=== PATIENT | male | born 1990 | race Caucasian/White ===

== ENCOUNTER 2017-10-22 19:46 | Emergency (ER) | payer OTHER ==
[~2017-10-22 19:46] MED LIST: ADVIL200 MG PO; ALEVE220 MG PO; AMOXIL500 MG PO; AUGMENTIN 875 M1 TAB PO; AUGMENTIN 875-1 EACH PO; BACTRIM DS 8001 TAB PO; CYCLOBENZAPRINE10 M3 PO; KEFLEX500 M1 PO; PERCOCET 325 MG1 TA2 PO; PERCOCET 5-3251 EACH PO
[2017-10-22 19:58] VITALS: BP 148/73
--- NOTE | 2017-10-22 20:08 | ED THROAT/DENTAL COMPLAINT ---
History of Present Illness General Chief Complaint: Sore Throat, Dental Pain Stated Complaint: PT IS HAVING TOOTH PAIN Source: patient, family Exam Limitations: no limitations Vital Signs & Intake/Output Vital Signs & Intake/Output Vital Signs Date Time Temp Pulse Resp B/P B/P Pulse O2 O2 Flow FiO2 Mean Ox Delivery Rate 10/22 1957 97.0 82 22 148/73 99 Allergies Coded Allergies: bee venom protein (honey bee) (Severe, ANAPHYLAXIS 08/05/17) codeine (Intermediate, HIVES 08/05/17) Reconcile Medications Amoxicillin/Potassium Clav (Augmentin 875-125 Tablet) 875 MG-125 MG TABLET 1 TAB PO BID TOOTH Amoxicillin/Potassium Clav (Augmentin 875-125 Tablet) 875 MG-125 MG TABLET 1 TAB PO BID DENTAL INFECTION Lidocaine HCl (Lidocaine HCl Viscous) 2 % SOLUTION 5 ML PO TID PAIN Oxycodone HCl/Acetaminophen (Percocet 5-325 MG Tablet) 5 MG-325 MG TABLET 1 TAB PO TID PAIN Oxycodone HCl/Acetaminophen (Percocet 5-325 MG Tablet) 5 MG-325 MG TABLET 1 TAB PO TID PRN PAIN Triage Note: PER PT BROKE A TOOTH 2 DAYS AGO TONIGHT PAIN TOO INTENSE AMBESOL NOT WORKING Triage Nurses Notes Reviewed? yes HPI: 27M no PMH with 2 days of left lower tooth pain after breaking his tooth biting into a chicken bone. Has a dental appointment for 4 days from now and has been using Anbesol for the pain which has been keeping it controlled until today. Today the pain has been unbearable and the patient is visibly uncomfortable and in pain. He denies fever, chills, n/v, spreading of pain, swelling, discharge, erythema, neck stiffness, headache, vision changes. Past History Travel History Traveled to [place] past 21 day No Medical History Any Pertinent Medical History? see below for history Neurological: NONE EENT: NONE Cardiovascular: NONE Respiratory: NONE Gastrointestinal: NONE Hepatic: hepatitis C Renal: NONE Musculoskeletal: NONE Psychiatric: ADHD Endocrine: NONE Blood Disorders: NONE Cancer(s): NONE CIRCUIT TESTER/Reproductive: NONE Surgical History Surgical History: non-contributory Psychosocial History What is your primary language Belarusian Tobacco Use: Current Daily Use Daily Tobacco Use Amount/Type: => 5 Cigarettes daily Family History Hx Contributory? No Review of Systems Review of Systems Constitutional: Reports: no symptoms. EENTM: Reports: no symptoms. Respiratory: Reports: no symptoms. Cardiovascular: Reports: no symptoms. GI: Reports: no symptoms. Genitourinary: Reports: no symptoms. Musculoskeletal: Reports: no symptoms. Skin: Reports: no symptoms. Neurological/Psychological: Reports: no symptoms. Hematologic/Endocrine: Reports: no symptoms. Immunologic/Allergic: Reports: no symptoms. All Other Systems: Reviewed and Negative Physical Exam Physical Exam General Appearance: well developed/nourished, moderate distress Head: atraumatic, normal appearance Eyes: Bilateral: normal appearance. Nose: normal inspection Mouth/Throat: left lower molar cracked with surrounding erythema Neck: normal inspection, supple, full range of motion Cardiovascular/Respiratory: normal breath sounds, regular rate/rhythm Back: normal inspection, normal range of motion Neurologic/Psych: awake, alert, oriented x 3, normal mood/affect Skin: intact, normal color, warm/dry Core Measures ACS in differential dx? No Sepsis Present: No Sepsis Focused Exam Completed? No Progress Differential Diagnosis: aspirated tooth, carious tooth, epiglottitis, Ludwigs angina, meningitis, odontogenic abscess, gil-tonsillar abscess, pharyngeal for. body, stomatitis/gingivitis, strep pharyngitis, tooth fracture Plan of Care: Will give local and IM pain medications and discharge with outpatient dental follow up. Improved after lidocaine injection. Departure Departure Disposition: HOME OR SELF CARE Condition: Stable Clinical Impression Primary Impression: Broken tooth Referrals: Patient Has No Primary Care Dr (PCP/Family) Additional Instructions: Follow up with your dentist or oral surgeon as soon as possible. If you note any new or worsening symptoms, including fever, chills, jaw pain, sinus pain, neck stiffness, confusion, changes in vision or hearing, return to emergency department. Departure Forms: Customer Survey General Discharge Information Prescriptions: Current Visit Scripts Oxycodone HCl/Acetaminophen (Percocet 5-325 MG Tablet) 1 TAB PO TID #15 TAB Lidocaine HCl (Lidocaine HCl Viscous) 5 ML PO TID #100 ML Amoxicillin/Potassium Clav (Augmentin 875-125 Tablet) 1 TAB PO BID #14 TAB
[2017-10-22] MEDS ORDERED: PERCOCET 5-3251 EACH PO (20:28)
[2017-10-22] MEDS ORDERED: LIDOCAINE HCL V15 ML PO (20:28)
[2017-10-22] MEDS ORDERED: AUGMENTIN 875-1 EACH PO (20:28)
== END 2017-10-22 20:53 ==
LOC: ERH 19:46
DX: S02.5XXA Fracture of tooth (traumatic), initial encounter for closed fracture (principal); X58.XXXA Exposure to other specified factors, initial encounter; Y93.89 Activity, other specified; Y92.9 Unspecified place or not applicable
CPT/HCPCS: 96372; J1885

== ENCOUNTER 2017-12-20 18:52 | Emergency (ER) | payer OTHER ==
[~2017-12-20] VITALS: Ht 170.2 cm; Wt 72.6 kg
[~2017-12-20 18:52] MED LIST changes: +LIDOCAINE HCL V15 ML PO
--- NOTE | 2017-12-20 19:56 | ED GENERAL ADULT ---
History of Present Illness General Chief Complaint: General Adult Stated Complaint: N/V OD EARLIER TODAY ON OXYCODONE 80MG Source: patient, family Exam Limitations: intoxication Vital Signs & Intake/Output Vital Signs & Intake/Output Vital Signs Date Time Temp Pulse Resp B/P B/P Pulse O2 O2 Flow FiO2 Mean Ox Delivery Rate 12/20 2224 98.0 68 18 135/72 98 Room Air Room Air 12/20 1917 98.0 65 18 137/74 97 Room Air Allergies Coded Allergies: bee venom protein (honey bee) (Severe, ANAPHYLAXIS 08/05/17) codeine (Intermediate, HIVES 08/05/17) Reconcile Medications Amoxicillin/Potassium Clav (Augmentin 875-125 Tablet) 875 MG-125 MG TABLET 1 TAB PO BID TOOTH Amoxicillin/Potassium Clav (Augmentin 875-125 Tablet) 875 MG-125 MG TABLET 1 TAB PO BID DENTAL INFECTION Lidocaine HCl (Lidocaine HCl Viscous) 2 % SOLUTION 5 ML PO TID PAIN Oxycodone HCl/Acetaminophen (Percocet 5-325 MG Tablet) 5 MG-325 MG TABLET 1 TAB PO TID PAIN Oxycodone HCl/Acetaminophen (Percocet 5-325 MG Tablet) 5 MG-325 MG TABLET 1 TAB PO TID PRN PAIN Triage Note: PT FROM HOME C/O OD ON OXYCODONE 80MG THIS MORNING AT WORK. PTS GIRLFRIEND CONCERNED. COWORKERS FOUND PT AT WORK ON THE GROUND, UNWITNESSED FALL, +HEADSTRIKE, UNSURE OF LOC. PTS GIRLFRIEND STATES HE WAS TAKEN TO [facility] AND THEN DISCHARGED. PTS HAS BEEN VOMITTING X4 WITH BLOOD, PT HAS SLURRED SPEECH, ANSWERS QUESTIONS APPROPRIATELY X3. PT IS AMBULATORY WITH UNSTEADY GAIT. PT IS LETHARGIC, DIAPHORESIS. PTS GF STATED NO CT SCANS OR XRAY WERE COMPLETED AND THAT PT USUALLY DOES NOT HAVE A DRUG "ISSUE" PT "HIS BACK HAS BEEN BOTHERING HIM THATS WHY HE TOOK THE MEDICATION" PT IS DROOLING SLUMPED OVER IN TRIAGE. 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 yes Onset: Gradual Duration: hour(s): Timing: single episode today Injury Environment: work Severity: moderate HPI: 27yo male presents to ED following accidental overdose on oxycodone 80mg this morning at work. HPI is obtained from patient's girlfriend due to his intoxication. Patient had been complaining of back pain for several weeks and believes he took this medication to help with his pain. She is unsure where he got the medication however she believes he got up from a coworker. states that the patient's coworkers found him on the ground, they believe he passed out after taking the medication. They believe that he has had however they are unsure if he lost consciousness. The patient was seen and evaluated at [facility] and was discharged without imaging. Girlfriend reports that he has had 4 episodes of vomiting and he is now having slurred speech with difficulty answering questions. Girlfriend is having difficulty arousing the patient. She states that he does not have a drug problem and this is new behavior for him. Girlfriend also reports history of recent cough and hemoptysis. Upon questioning the patient is denying pain, he denies suicidal ideation. (Triny Owusu) Past History Travel History Traveled to [place] past 21 day No Medical History Any Pertinent Medical History? see below for history Neurological: NONE EENT: NONE Cardiovascular: NONE Respiratory: NONE Gastrointestinal: NONE Hepatic: hepatitis C Renal: NONE Musculoskeletal: NONE Psychiatric: ADHD Endocrine: NONE Blood Disorders: NONE Cancer(s): NONE RN PRIOR AUTHORIZATION/Reproductive: NONE Surgical History Surgical History: non-contributory Psychosocial History What is your primary language Luxembourgish Tobacco Use: Current Daily Use Daily Tobacco Use Amount/Type: => 5 Cigarettes daily ETOH Use: occasional use Illicit Drug Use: marijuana Family History Hx Contributory? No (Triny Owusu) Review of Systems Review of Systems Constitutional: Reports: see HPI. EENTM: Reports: no symptoms. Respiratory: Reports: see HPI. Cardiovascular: Reports: no symptoms. GI: Reports: see HPI. Genitourinary: Reports: no symptoms. Musculoskeletal: Reports: see HPI. Skin: Reports: no symptoms. Neurological/Psychological: Reports: see HPI. Hematologic/Endocrine: Reports: no symptoms. Immunologic/Allergic: Reports: no symptoms. All Other Systems: Reviewed and Negative (Triny Owusu) Physical Exam Physical Exam General Appearance: well developed/nourished, no apparent distress, alert, awake Head: atraumatic, normal appearance Eyes: Bilateral: normal appearance, other (pinpoint pupils). Ears, Nose, Throat: hearing grossly normal Neck: normal inspection, supple, full range of motion, no midline tenderness Respiratory: normal breath sounds, no respiratory distress, lungs clear Cardiovascular: regular rate/rhythm Gastrointestinal: normal bowel sounds, soft, non-tender, no organomegaly Back: normal inspection, normal range of motion Extremities: normal inspection, normal range of motion Neurologic/Psych: sedated, arousable with verbal stimuli Skin: intact, normal color, diaphoresis Core Measures ACS in differential dx? No CVA/TIA Diagnosis: No Sepsis Present: No Sepsis Focused Exam Completed? No (Azeb LANDAVERDE,Triny Leija) Progress Differential Diagnoses I considered the following diagnoses in my evaluation of the patient: [drug overdose, polysubstance abuse, ICH, seizure, intracranial mass/lesion] Plan of Care: Orders Procedure Date/time Status Add-on Test (ER Only) 12/20 2099 Active TROPONIN LEVEL 12/21 2019 Complete EKG 12/20 1958 Active Add-on Test (ER Only) 12/21 1955 Active URINE DRUG SCREEN FOR ER ONLY 12/21 1911 Complete ACETOMINOPHEN 12/21 1911 Complete SALICYLATE 12/21 1911 Complete D-DIMER 12/21 1911 Complete COMPREHENSIVE METABOLIC PANEL 12/21 1911 Complete CBC WITHOUT DIFFERENTIAL 12/21 1911 Complete Laboratory Tests 12/20/172019: Urine Opiates Screen > 4000.00 H, Methadone Screen < 40, Barbiturate Screen < 60, Ur Phencyclidine Scrn < 6.00, Amphetamines Screen < 100, U Benzodiazepines Scrn < 85, Urine Cocaine Screen 904 H, Urine Cannabis Screen > 80.00 H 12/20/17 2020: Anion Gap 8, Estimated GFR > 60, BUN/Creatinine Ratio 11.8, Glucose 81, Calcium 9.6, Total Bilirubin 0.6, AST 43, ALT 76 H, Alkaline Phosphatase 65, Troponin I < 0.01, Total Protein 7.5, Albumin 4.7, Globulin 2.8, Albumin/Globulin Ratio 1.7 , D-Dimer High Sensitivty < 200, CBC w Diff NO MAN DIFF REQ, RBC 4.72, MCV 85.1, MCH 27.9, MCHC 32.8 L, RDW 14.1, MPV 7.5, Gran % 59.6, Lymphocytes % 27.8, Monocytes % 8.9, Eosinophils % 1.9, Basophils % 1.8, Absolute Granulocytes 8.3 H, Absolute Lymphocytes 3.9 H, Absolute Monocytes 1.2 H, Absolute Eosinophils 0.3, Absolute Basophils 0.2, Salicylates < 1.0, Acetaminophen < 10.[address] is WNL. Patient's labs show cocaine, marijuana, and opiates in urine toxicology. Patient's current mental status likely related to his significant level of opiates in his system. Given patient's cough with possible hemoptysis d-dimer ordered, d-dimer is negative, low suspicion for pulmonary embolus and at this time. I offered chest x-ray however patient and prefer to leave at this time. They were given a slip for an outpatient chest x-ray to obtain a patient has persistent cough symptoms. is a reliable source, she will take care of the patient later tonight given his intoxicated state. and patient agree with the plan of care. The patient was discussed with Dr. Rodriguez who agrees with this plan. Diagnostic Imaging: Viewed by Me: CT Scan. Discussed w/RAD: CT Scan. Radiology Impression: PATIENT: CODI BARRERA PRESENT AGE: 27 PATIENT ACCOUNT NO: [id number] : 89 LOCATION: [facility] ORDERING PHYSICIAN: Triny LANDAVERDE SERVICE DATE: 12/20/17 EXAM TYPE: CAT - CT CERV SPINE WO IV CONTRAST; CT HEAD WO IV CONTRAST EXAMINATION: HEAD CT WITHOUT CONTRAST CERVICAL SPINE CT WITHOUT CONTRAST CLINICAL INFORMATION: Fall with head trauma. Slurred speech and vomiting. COMPARISON: None. TECHNIQUE: Contiguous axial imaging of the head was performed without the administration of IV contrast. Axial multidetector volumetric images were also performed through the cervical spine without contrast. Multiplanar reconstructed images in coronal and sagittal orientations were submitted. DOSE: 953.44 mGy-cm FINDINGS: HEAD: There is no evidence of acute intracranial hemorrhage or territorial infarction. No abnormal mass-effect or midline shift. No extra-axial fluid collections. Aguayo to white matter differentiation is well preserved. The ventricles are normal in size and configuration. There is no abnormal attenuation within the brain parenchyma. The soft tissues and osseous structures are normal. The sinuses and mastoid air cells are clear. CERVICAL SPINE: Vertebral body heights are normal. No fractures of the vertebral bodies or posterior elements. Vertebral alignment is normal. Mild straightening of the cervical spine is likely positional. No subluxation. The craniocervical and atlantoaxial articulations are normal. Intervertebral disc heights are normal. No significant degenerative disc disease. Facet joints are normal. Central canal and neural foramina appear patent without appreciable stenoses. No significant paravertebral soft tissue swelling. Cervical soft tissues are unremarkable. Imaged portions of the lung apices are clear. IMPRESSION: 1. No acute intracranial pathology. 2. No acute fracture or malalignment in the cervical spine. DICTATED BY: Butch Correia MD DATE/TIME DICTATED:12/20/172025 CRITICAL CARE RN:AL DATE/TIME TRANSCRIBED:12/20/172025 CONFIDENTIAL, DO NOT COPY WITHOUT APPROPRIATE AUTHORIZATION. <Electronically signed in Other Vendor System> SIGNED BY: Butch Correia MD 12/20/172032 Initial ED EKG: sinus rhythm @76bpm, nonspecific ST changes (Azeb LANDAVERDE,Triny Leija) Departure Departure Disposition: HOME OR SELF CARE Condition: Stable Clinical Impression Primary Impression: Opiate abuse, episodic Secondary Impressions: Cough, Nausea Referrals: Patient Has No Primary Care Dr (PCP/Family) Additional Instructions: It is recommended that you refrain from taking any type of opiate medication given your symptoms today. You were given a slip for an outpatient chest x-ray to follow-up with if you have persistent cough symptoms. Also follow-up with your primary care doctor regarding today's visit. Please note that there might be incidental findings in your evaluation that are unrelated to the current emergency department visit. Please notify your primary care doctor about this emergency department visit in order to obtain and review all of the testing performed so that these incidental findings can be monitored as needed. If you had an x-ray performed, please understand that some fractures may not be seen on the initial set of x-rays. If your symptoms persist you might need a repeat set of x-rays to check for such a fracture. If you had a laceration evaluated, please understand that foreign bodies such as glass or wood may not be visible to the naked eye or on plain x-rays. If the wound becomes red, swollen, increasingly more painful or if there is any drainage from the wound, please have it reevaluated by a physician for the possibility of a retained foreign body. If you're unable to follow up as outlined in the discharge instructions please return to the emergency department. Thank you for choosing the [facility] Emergency Department for your care. It was a pleasure to serve you today. Departure Forms: Customer Survey General Discharge Information (Triny Owusu) PA/LABOR ARBITRATOR Co-Sign Statement Statement: ED Attending supervision documentation- [] I saw and evaluated the patient. I have also reviewed all the pertinent lab results and diagnostic results. I agree with the findings and the plan of care as documented in the PA's/LABOR ARBITRATOR's documentation. [x] I have reviewed the ED Record and agree with the PA's/LABOR ARBITRATOR's documentation. [] Additions or exceptions (if any) to the PAs/LABOR ARBITRATOR's note and plan are summarized below: [] (Jennifer RASHID,Paolo Anthony) Critical Care Note Critical Care Note Critical Care Time: non-applicable (Triny Owusu)
[2017-12-20 20:33] LABS: ABSOLUTE BASOPHIL COUNT 0.2 /CUMM (0.0-0.2); ABSOLUTE EOSINOPHIL COUNT 0.3 /CUMM (0.0-0.7); ABSOLUTE GRANULOCYTE CT 8.3 /CUMM (1.4-6.5); ABSOLUTE LYMPH COUNT 3.9 /CUMM (1.2-3.4); ABSOLUTE MONOCYTE COUNT 1.2 /CUMM (0.10-0.60); BASOPHIL % 1.8 % (0.0-2.0); EOSINOPHIL % 1.9 % (0-5); HEMATOCRIT 40.1 % (42-52); MEAN CORPUSCULAR HGB 27.9 PG (27.0-31.0); MEAN CORPUSCULAR HGB CONC 32.8 G/DL (33.0-37.0); MEAN CORPUSCULAR VOLUME 85.1 FL (80.0-94.0); MEAN PLATELET VOLUME 7.5 FL (7.4-10.4); PLATELET COUNT 262 /CUMM (130-400); RBC DISTRIBUTION WIDTH 14.1 % (11.5-14.5); RED BLOOD CELL CT 4.72 /CUMM (4.70-6.10); WHITE BLOOD CELL COUNT 13.9 /CUMM (4.8-10.8)
--- NOTE | 2017-12-20 20:33 | CT SCAN REPORT ---
EXAMINATION: HEAD CT WITHOUT CONTRAST CERVICAL SPINE CT WITHOUT CONTRAST CLINICAL INFORMATION: Fall with head trauma. Slurred speech and vomiting. COMPARISON: None. TECHNIQUE: Contiguous axial imaging of the head was performed without the administration of IV contrast. Axial multidetector volumetric images were also performed through the cervical spine without contrast. Multiplanar reconstructed images in coronal and sagittal orientations were submitted. DOSE: 953.44 mGy-cm FINDINGS: HEAD: There is no evidence of acute intracranial hemorrhage or territorial infarction. No abnormal mass-effect or midline shift. No extra-axial fluid collections. Aguayo to white matter differentiation is well preserved. The ventricles are normal in size and configuration. There is no abnormal attenuation within the brain parenchyma. The soft tissues and osseous structures are normal. The sinuses and mastoid air cells are clear. CERVICAL SPINE: Vertebral body heights are normal. No fractures of the vertebral bodies or posterior elements. Vertebral alignment is normal. Mild straightening of the cervical spine is likely positional. No subluxation. The craniocervical and atlantoaxial articulations are normal. Intervertebral disc heights are normal. No significant degenerative disc disease. Facet joints are normal. Central canal and neural foramina appear patent without appreciable stenoses. No significant paravertebral soft tissue swelling. Cervical soft tissues are unremarkable. Imaged portions of the lung apices are clear. IMPRESSION: 1. No acute intracranial pathology. 2. No acute fracture or malalignment in the cervical spine.
[2017-12-20 20:56] LABS: GRANULOCYTE % 59.6 % (42.2-75.2)
[2017-12-20 22:25] VITALS: BP 135/72
== END 2017-12-20 22:38 ==
LOC: ERH 18:52
PROVIDERS: Physician Assistant Medical
DX: F11.10 Opioid abuse, uncomplicated (principal); R05 Cough; R11.2 Nausea with vomiting, unspecified
CPT/HCPCS: 80307; 93005; 93010; 96372; G0480; J2310